=== PATIENT | female | born 1935 | race Two or more races ===

== ENCOUNTER 2019-03-15 23:26 | Inpatient (IN) | payer OTHER, MEDICARE ==
[~2019-03-15] VITALS: Ht 149.9 cm; Wt 66.8 kg
--- NOTE | 2019-03-15 23:29 | NUR ---
BIB [facility] FOR RIGHT HIP PAIN AFTER A MECHANICAL TRIP AND FALL WHILE WALKING. DENIES HEAD PAIN. NEGATIVE FOR BLOOD THINNERS. HX INCLUDES DM. PELVIS IS STABLE. PT IS ALERT AND ORIENTED X4. AN ABRASION IS ALSO NOTED TO THE TOP OF THE RIGHT FOOT. BREATHING IS UNLABORED. PT ABLE TO VOCALIZE CLEARLY. NO SHORTENING OR ROTATION IS NOTED. [facility] TO RLE NOTED TO BE EQUAL TO LLE. PT CONNECTED TO FULL MONITORS AND AWAITING MSE.
[2019-03-15 23:34] VITALS: Ht 149.9 cm; Wt 66.8 kg
--- NOTE | 2019-03-16 00:15 | NUR ---
PT IS IN RADIOLOGY FOR XRAY AT THIS TIME.
--- NOTE | 2019-03-16 00:19 | NUR ---
PT IS BACK FROM X-RAY, APPEARS COMFORTABLE IN BED. NO DISTRESS NOTED.
[2019-03-16] MEDS ORDERED: NEU300 PO (00:58)
[2019-03-16] MEDS ORDERED: METFORMIN HYDR500 M1 PO (00:58)
[2019-03-16] MEDS ORDERED: JANUVIA100 M1 PO (00:58)
[2019-03-16] MEDS ORDERED: ENALAPRIL MALEAT5 MG PO (00:59)
[2019-03-16] MEDS ORDERED: GLIMEPIRIDE1 M1 PO (00:59)
[2019-03-16] MEDS ORDERED: ARICEPT5 MG PO (01:00)
[2019-03-16] MEDS ORDERED: SIMVASTATIN20 M1 PO (01:00)
[2019-03-16] MEDS ORDERED: ASPIRIN CHILDRE81 MG PO (01:00)
--- NOTE | 2019-03-16 01:19 | NUR ---
PT GOT UP AND TRIED TO AMBULATE PT, PT WAS ABLE TO STAND UP AT BEDSIDE BUT UNABLE TO AMBULATE AND C/O OF SEVERE PAIN TO RT HIP, ASISSTED PT BACK TO BED WITHOUT ANY INCIDENT, DR URBINA AT BEDSIDE AND DISSCUSS POC WITH PT.
--- NOTE | 2019-03-16 01:55 | NUR ---
DR HANKINS AT BEDSIDE AND BONNIE PT.
--- NOTE | 2019-03-16 02:01 | NUR ---
REPORT CALLED TO [facility], ALL QUESTIONS ANSWERED AND CONCERNS ADDRESSED.
[2019-03-16 02:02] LABS: CALCIUM 8.9 mg/dL (8.5-10.1); CARBON DIOXIDE 26.2 mmol/L (21-32); CHLORIDE SERUM 105 mmol/L (98-107); CREATININE SERUM 0.7 mg/dL (0.6-1.0); GLUCOSE SERUM 258 mg/dL (74-106); POTASSIUM SERUM 3.8 mmol/L (3.5-5.1); SODIUM SERUM 142 mmol/L (136-145)
[2019-03-16 02:13] LABS: BASOPHIL % 0.2 % (0-2); PLATELET COUNT 210 x10^3mcL (130-400); RED CELL DISTRIBUTION WIDTH 13.8 % (11.5-14.5)
--- NOTE | 2019-03-16 02:15 | NUR ---
RECEIVED PT FROM ED VIA [facility] ACCOMPANIED BY DAUGHTER AND RNS. ORIENTED PT AND FAMILY TO ROOM AND SURROUNDINGS. PT IN NO ACUTE DISTRESS. EVEN AND UNLABORED RESPIRATIONS ON RA. IV PATENT AND INTACT. MEDSURG PT. RIGHT HIP PAIN RESOLVING AFTER PAIN MEDICATIONS ADMINISTERED IN ED. PAIN WORSE WITH MOVEMENT. BED IN LOWEST POSITION. SIDE RAILS UPX2. CALL LIGHT WITHIN REACH. WILL CONTINUE TO MONITOR.
[2019-03-16 02:49] VITALS: BP 151/66
[2019-03-16 03:55] LABS: UA SPECIFIC GRAVITY >=1.030 (1.005-1.035); microscopic required? YES; urine erythrocyte NEGATIVE (NEGATIVE)
[2019-03-16 05:35] VITALS: BP 135/53
[2019-03-16 06:13] LABS: BASOPHIL % 0.3 % (0-2); PLATELET COUNT 197 x10^3mcL (130-400); RED CELL DISTRIBUTION WIDTH 13.9 % (11.5-14.5)
[2019-03-16 06:23] LABS: CALCIUM 8.2 mg/dL (8.5-10.1); CARBON DIOXIDE 27.5 mmol/L (21-32); CHLORIDE SERUM 107 mmol/L (98-107); CREATININE SERUM 0.6 mg/dL (0.6-1.0); GLUCOSE SERUM 181 mg/dL (74-106); POTASSIUM SERUM 3.8 mmol/L (3.5-5.1); SODIUM SERUM 142 mmol/L (136-145)
--- NOTE | 2019-03-16 06:46 | NUR ---
PT RESTED COMFORTABLY THROUGHOUT THE SHIFT. DAUGHTER AT BEDSIDE. ALL NEEDS TENDED TO AND MET. ALL SCHEDULED MEDICATIONS GIVEN. HIP PAIN TOLERABLE AT THIS TIME, PAIN INCREASES WITH MOVEMENT, STATES NO PAIN MEDICATIONS NEEDED AT THIS TIME. IVL PATENT AND INTACT. BLOOD SUGAR CHECKED, 167, COVERED PER SLIDING SCALE. BED IN LOWEST POSITION. SIDE RAILS UPX2. CALL LIGHT WITHIN REACH. WILL ENDORSE TO ONCOMING SHIFT.
--- NOTE | 2019-03-16 08:00 | NUR ---
RECIEVED PATIENT WITH FAMILY AT BEDSIDE AND SUPPORTIVE WITH CARE. PATIENT HAS NO COMPLAINTS OF PAIN AT THIS TIME. SHE HAS CLEAR BREATH SOUNDS AND BOWEL SOUND SACTIVE. SOME MILD TRACE EDEMA NOTED TO THE LOWER EXTREMITES AND HAS BEEN ABLE TO USE THE BEDPAN OVERNIGHT. SHE HAS SOMETIMES STRESS INCONTINENCE. SHE HAS BEEN WITH INTERMITTANT CONFUSION PER REPORT AND IS SPAINISH SPEAKING ONLY. VITALS AT THIS TIME AT 97.1, 64, 18, 135/53, 95%. BLOOD SUGAR THIS AM AT 167 AND NOTED SHE HAS HE AIC IS AT 8.6. SHE HAS SOME LEUKS IN HER URINE AND 6-10 WBCS SHE HAS ORDERED ROCEPHIN FOR THE UTI. GONZALO BLACKHS HX OF HTN, DM, HLD, ALZHIEMERS. SHE HAD FELL AFTER TRIPING AT HOME. SHE HAS A LINEAR FRACTRUE TO THE RIGHT HIP AND PUBIS IS ALSO EFFECTED. NO SURGERY HAS BEEN PLANNED AND GONZALO HAGEN SOEM BRUISING BUT NO FRACTURE TO THE RIGHT HAND. NO ACUTE DISTRESS AND PT TO SEE AND WORK WITH THE PATIENT ON AMBULATION.
[2019-03-16 09:21] VITALS: BP 158/71
--- NOTE | 2019-03-16 10:47 | NUR ---
PATIENT UP WITH PT AND TOLERATED FAIR. REQUESTED PAIN MEDICATION AND GAVE TYLENOL SHE DOES NOT WANT ANYTHING TOO STRONG. TOOK ALL HER MEDICATION AND THE ROCEPHIN IS RUNNING AT THIS TIME.
--- NOTE | 2019-03-16 11:45 | NUR ---
BLOOD SUGAR AT 154 AND GAVE 3 UNITS OF REGULAR. FAMILY AT BEDSIDE AND SUPPORTIVE WITH CARE.
--- NOTE | 2019-03-16 15:42 | NUR ---
ADVISED OF PLAN FOR DISCHARGE TO [facility] IF FAMILY IS AGREEABLE. TIMUR TAMMYCorazon BEEN RESTING QUIETLY AT THIS TIME SHE HAS TOLERATED DIET AND FLUIDS WELL. SHE HAS NO ASKED FOR ANY PAIN MEDICATION SINCE THE AM. FAMILY WILL BE RETURNING AND TO SPEAK WITH STAFF ABOUT AGREEABLE TO TRANSFER TO [facility] OR NOT.
[2019-03-16 16:55] VITALS: BP 141/58
[2019-03-16 18:12] VITALS: BP 141/58
--- NOTE | 2019-03-16 19:20 | NUR ---
RECEIVED PT RESTING IN BED, DAUGHTER AT BEDSIDE. AOX3, DENIES GOTTLIEB/DIZZINESS. HX OF ALZHEIMERS, DAUGHTER AT BEDSIDE ASSISTING WITH QUESTIONS. MEDSURG PT, DENIES CP. PULSES PALPABLE BILAT, PT PENDING TRANSFER [facility] FOR TXR OF PELVIC FRACTURE. PT REPORTS PAIN UNDER CONTROL AT REST, ONLY PAIN W/ MOVEMENT. RESP EVEN AND UNLABORED ON RA, DENIES SOB. ABD SOFT, ROUND, DENIES PAIN. LBM= 8/14; PT REPORTS HX OF CONSTIPATION; WILL PROVIDE COLACE. PT VOIDS W/ BEDPAN, DENIES DYSURIA. GENERALIZED WEAKNESS. IV SITE TO THE LAC 20G, SALINE LOCKED. ALL COMFORT AND SAFETY MEASURES PROVIDED FOR, TRANSFER PACKET SIGNED AND COMPLETE. PT WILL BE TRANSFERED WITH LAC IV. CALL LIGHT WITHIN REACH, BED IN LOWEST POSITION, WILL CONTINUE TO MONITOR.
[2019-03-16 20:54] VITALS: BP 130/57
--- NOTE | 2019-03-16 22:28 | NUR ---
PHONED [facility] IN [place] TO ETA FOR CONCESSION CASHIER; PER CLEANER AND POLISHER, TRANSPORTATION CREW HAVE BEEN DELAYED, APPROX ETA= 2330. PHONED [facility] IN REG[place] TO THE NEW ETA TO ENSURE PT WILL BE ACCEPTED. PER CLEANER AND POLISHER AT [facility], PT WILL STILL BE ACCEPTED AT THIS TIME. FAMILY UPDATED WITH PLAN OF CARE. CALL LIGHT WITHIN REACH, BED IN LOWEST POSITION, WILL CONTINUE TO MONITOR.
--- NOTE | 2019-03-17 00:11 | NUR ---
CALLED [facility] A 2ND TIME TO FOLLOW UP WITH ETA DUE TO INITIAL ETA WAS 2129, THEN INFORMED NEW ETA WOULD BE 0. PER FLOOR ASSOCIATE, TRANSPORTATION TEAM DOWNSTAIRS, WILL BE UP MOMENTARILY. WILL GET PT CHANGED AND READY FOR TRANSPORTATION.
--- NOTE | 2019-03-17 00:30 | NUR ---
ON THE PHONE WITH [facility] TO CONFIRM PT WILL BE ACCEPTED AT THIS TIME. PT HAS BEEN CHANGED INTO TRANSFER GOWN, PAPER SIGNED AND READY FOR TRANSFER. PER [facility] [employer] DRIVER OPERATOR, TRANSPORTATION TEAM DOWNSTAIR AND WILL BE UP SHORTLY. ON HOLD WITH [facility] TO ENSURE PT WILL BE ACCEPTED AT THIS TIME.
--- NOTE | 2019-03-17 01:10 | NUR ---
PT TRANSFERED OFF THE FLOOR WITH [facility]. PT MEDICATED WITH ZOFRAN FOR NAUSEA R/T POSSIBLE THE [place]. DAUGHTER AT BEDSIDE, PT TRANSFERED [facility] TO [facility] WITH ASSIST X2. TRANSFER PACKET IN PLACE, ALL COMFORT AND SAFETY MEASURES PROVIDED FOR, ALL QUESTIONS AND CONCERNS ADDRESSED. DAUGHTER WILL FOLLOW AMBULANCE TO [facility], ADDRESS PROVIDED.
== END 2019-03-17 01:08 | DRG 341 ==
LOC: ED 23:26 → MU 03-16 01:32
PROVIDERS: Emergency Medicine; ADMIT Internal Medicine
DX: S32.511A Fracture of superior rim of right pubis, initial encounter for closed fracture (principal); N17.0 Acute kidney failure with tubular necrosis; E11.65 Type 2 diabetes mellitus with hyperglycemia; G30.9 Alzheimer's disease, unspecified; F02.80 Dementia in other diseases classified elsewhere, unspecified severity, without behavioral disturbance, psychotic disturbance, mood disturbance, and anxiety; N39.0 Urinary tract infection, site not specified; E78.5 Hyperlipidemia, unspecified; I10 Essential (primary) hypertension; W18.39XA Other fall on same level, initial encounter; Y93.89 Activity, other specified; Y92.480 Sidewalk as the place of occurrence of the external cause; Z79.82 Long term (current) use of aspirin; Z68.32 Body mass index [BMI] 32.0-32.9, adult; Z79.84 Long term (current) use of oral hypoglycemic drugs
CPT/HCPCS: 82962; 97116-GP; G0378; J0696; J1815; J1885; J2270; J2405; J7030; J7040; Q0092